=== PATIENT | male | born 1985 | race Caucasian/White ===

== ENCOUNTER 2016-11-08 11:40 | Emergency (ER) | payer OTHER ==
[~2016-11-08] VITALS: Ht 185.4 cm; Wt 129.6 kg
[~2016-11-08 11:40] MED LIST: CLIN-78 PO; IBUP800T28 PO
[2016-11-08 11:43] VITALS: BP 144/95; PULSE 77; RESP 16; O2SAT 98
[2016-11-08] MEDS ORDERED: METH20TA33 PO (11:45)
--- NOTE | 2016-11-08 11:49 | ED.REPORT ---
HPI-Back Pain Under 40 Date of Service Nov 08, 2016 ED Provider: Primo Boyer PA-C Jamey is a 31-year-old male with history of hypertension who presents with chief complaint of back pain. He describes pain that began in the middle of his back, between his shoulder blades which started while he was driving yesterday. Patient states that when he got his home, he noted a episode of pain in his chest associated with shortness of breath. Chest pain has been intermittent since then. He associates this pain with pain in his shoulders as well as pain and numbness in both his arms that was worse when he woke up this morning.. He reports that he has had numbness and tingling in his hands for 2 months approximately. Admits history of smoking. Admits family history of heart disease. Denies personal history of heart disease or diabetes. Denies lumbar or cervical pain. Denies fever, DM, HIV, organ transplant, immunosuppression, recent surgery, recent infection, history of back surgery, surgical implants and IV drug use. Denies some bowel/bladder dysfunction, saddle anesthesia. Nursing Notes Stated Complaint: BACK PAIN/ARMS AND HANDS NUMBNESS Chief Complaint: Back Pain or Injury Nursing Notes Reviewed: Yes Allergies: Coded Allergies: Sulfa (Sulfonamide Antibiotics) (Verified Allergy, Unknown, 11/08/16) Scheduled Methylphenidate (Methylphenidate) 20 Mg Tablet 20 MG PO DAILY Scheduled PRN Cyclobenzaprine (Cyclobenzaprine) 5 Mg Tablet 5 MG PO TID PRN PRN Spasm General Time Seen by MD: 11:47 Chief Complaint Back pain Sudden in Onset?: Yes Past Medical History Past Medical History Notes: PCP: [facility] Past Medical History Lower Extremity Cellulitis 02/23/2015 ADD Anxiety Past Surgical History None reported Family History Both grandfathers of [place], over 50. Father with heart disease, still living. Smoking History Current Every Day Smoker Social History Alcohol Use: 1-3 per week Drug Use: Denies drug use Ambulatory Status Independent Review of Systems Negative unless stated otherwise in history of present illness Physical Exam General: Well appearing, well developed, well nourished, no acute distress. Head: Atraumatic, normocephalic. Eyes: No scleral icterus or injection. No discharge. Vision grossly intact. ENT: Voice clear, hearing grossly intact. Respiratory: Regular rate and rhythm. Breath sounds present, clear to auscultation and equal bilaterally. No respiratory distress. No increased work of breathing, speaks in complete sentences. Cardiovascular: Regular rate and rhythm, without murmur, gallop or rub. No pedal edema. Gastrointestinal: Abdomen flat and non-tender without guarding or rebound. Bowel sounds normoactive. Skin: Warm and dry. Back: Normal to inspection, mild tenderness to palpation over trapezius muscles bilaterally. Mild midline spinal tenderness in thoracic region. Neurological: Normal gait. Deltoid abduction, wrist flexion and extension, finger flexion and abduction strength 5/5 on right. Deltoid abduction 5/5, wrist flexion and extension, finger flexion and abduction strength 4/5 on left. sensation to sharp touch intact over deltoid but reduced over first, third and fifth digits B/L. triceps reflexes absent bilaterally, brachioradialis reflexes present and equal B/L. Psychological: Alert and oriented. Speech appropriate, linear and logical. Behavior appropriate. Initial Vital Signs Vital Signs (First) Date Time Temp Pulse Resp B/P Pulse Ox O2 Delivery O2 Flow Rate FiO2 11/08/16 11:43 36.8 77 16 144/95 98 Room Air Initial VS: Reviewed, Vital signs normal Interpretation & Diagnostics Lab Results Interpretation Result Diagram: 11/08/16 1325 11/08/16 1325 Test 11/08/16 13:25 White Blood Count 5.9th/mm3 (3.8-10.1) Red Blood Count 5.39mil/mm3 (4.40-5.80) Hemoglobin 15.4g/dL (13.8-17.2) Hematocrit 47.6% (41.0-50.0) Mean Corpuscular Volume 88.3fL (81-100) Mean Corpuscular Hemoglobin 28.6pg (27.0-35.0) Mean Corpuscular Hemoglobin Concent 32.4% (32.0-37.0) Red Cell Distribution Width 13.3% (12.3-15.4) Platelet Count 271bil/L (150-400) Neutrophils (%) (Auto) 59.8% (40-74) Lymphocytes (%) (Auto) 30.2% (14-46) Monocytes (%) (Auto) 6.5% (4-12) Eosinophils (%) (Auto) 3.2% (0-5) Basophils (%) (Auto) 0.3% (0-3) Sodium Level 140mEq/L (134-144) Potassium Level 4.3mEq/L (3.5-5.2) Chloride Level 103mEq/L (97-108) Carbon Dioxide Level 22mmol/L (18-29) Blood Urea Nitrogen 19mg/dL (6-20) Creatinine 0.87mg/dL (0.76-1.27) Estimat Glomerular Filtration Rate 108mL/min (>59) Glucose Level 116mg/dL (60-99) Calcium Level 9.7mg/dL (8.5-10.1) Total Bilirubin 0.5mg/dL (0.0-1.2) Aspartate Amino Transf (AST/SGOT) 26U/L (0-50) Alanine Aminotransferase (ALT/SGPT) 51U/L (0-44) Alkaline Phosphatase 67U/L (25-150) Troponin T < 0.010ug/L (0.0-0.011) Total Protein 8.0g/dL (6.4-8.4) Albumin 4.3g/dL (3.4-5.0) Hold Fabian Top Tube Received (Received) ECG Interpretation Interpreted by: ED physician Normal ECG Interpretation: Normal rate, Normal sinus rhythm, No acute ischemic changes, Normal QRS, Normal axis, Normal intervals, No change from prior ECGs, Adequate tracing X-Ray Chest Interpretation Chest Xray Interpretation: PROCEDURE: X-RAY CHEST ONE VIEW, PORTABLE ([id number]) INDICATIONS: chest pain IMPRESSION: No acute cardiopulmonary disease. Re-Eval/Medical Decision Med Decision/Clinical Course Otherwise healthy 29-year-old male presents with thoracic back pain began while he was driving yesterday. He reports it is associated with some chest pain. He states it radiates to his shoulders and his arms. Complains of numbness in his hands bilaterally that has been present for some time. Denies weakness. No red flag history for epidural abscess, hematoma, cauda equina syndrome, trauma. Physical examination reveals some weakness on the left side and reduced sensation to sharp touch in his hands bilaterally. Patient reports mild tenderness over his trapezius muscles. Patient moves easily to disrobe, walk. EKG, CBC, CMP and troponin are all reassuring. I believe this is muscular skeletal pain. I am not concerned about a cardiac event, aortic dissection, or the previously mentioned conditions. I cannot easily explain the weakness on his left side, as this does not seem consistent with the location of his pain. I have little concern for stroke. Advised [id number] analgesia provided small prescription for cyclobenzaprine. Advise primary care follow-up, prior emergency return precautions. Patient understands and agrees with plan. I discussed his case with Dr. Madrid. Re-Evaluation/Progress : Time of Eval: 12:50 Patient Status: Condition improved Re-Evaluation/Progress Note: Patient reports improvement with in pain with ketorolac and acetaminophen. shooting pains in arms have resolved, reports "a little numbness when I move my hands" Discharge & Departure Impression: Primary Impression: Thoracic back pain Chronicity: acute Back pain laterality: bilateral Qualified Code: M54.6 - Pain in thoracic spine Disposition: Home All VS Reviewed: Yes Condition: Stable Additional Instructions: Evaluation in the emergency department for upper back pain. History physical are reassuring this is unlikely to be an immediately dangerous conditions such as compression of your spinal cord, infection or bleeding. EKG, chest x-ray and blood tests are reassuring this is not likely to be caused by a cardiac event or problem with your lungs. I believe this is musculoskeletal back pain and that you are stable and safe for discharge. The pain is best treated with 400 mg of ibuprofen (Advil, Motrin) every 6 hours , or 1000 mg of acetaminophen (Tylenol) every 6 hours. These drugs can be taken at the same time for more severe pain. I will prescribe a small amount of muscle relaxant, mostly to help with sleep. Do not drive, operate equipment or drink alcohol within 4 hours of taking this medication. Please follow-up with your primary care provider in the next few days to discuss the sensation of numbness and weakness in your arms. Return to emergency department for any new or worsening symptoms including increasing pain, increasing weakness, fever Referrals: Miguel Grimaldo MD EDSupervising Provider for APC: Federico Madrid MD copies to: Miguel Grimaldo MD, Seth PA-C Nov 08, 2016 11:49
[2016-11-08] MEDS ORDERED: Ketorolac 30 mg/mL 2 mL Inj IM ONE (12:10)
--- NOTE | 2016-11-08 13:30 | DRSVH ---
PROCEDURE: X-RAY CHEST ONE VIEW, PORTABLE ([id number]) INDICATIONS: chest pain TECHNIQUE: One view of the chest was acquired. COMPARISON: [facility], CR, XR CHEST 1VW (PORTABLE), 05/16/2016, 21:53. FINDINGS: Surgical changes and devices: None. Lungs and pleura: No pleural effusions or pneumothorax. Lungs are clear. Mediastinum: Mediastinal contours appear normal. Heart size is normal. Bones and chest wall: No suspicious bony lesions. Overlying soft tissues appear unremarkable. IMPRESSION: No acute cardiopulmonary disease. Dictated by: Samir Smith [facility] Interpreted: Imtiaz Dickens MD on 11/08/2016 at 13:29 Transcribed by: EBEN on 11/08/2016 at 13:30 Approved by: Imtiaz Dickens M.D. on 11/08/2016 at 19:20
[2016-11-08 13:36] LABS: BASOPHILS % (AUTO) 0.3 % (0-3); EOSINOPHILS % (AUTO) 3.2 % (0-5); MONOCYTES % (AUTO) 6.5 % (4-12); Mean Corpuscular Hemoglobin 28.6 pg (27.0-35.0); Mean Corpuscular Volume 88.3 fL (81-100); NEUTROPHILS % (AUTO) 59.8 % (40-74); Platelet Count 271 bil/L (150-400)
[2016-11-08 13:56] LABS: TROPONIN T < 0.010 ug/L (0.0-0.011)
[2016-11-08] MEDS ORDERED: CYCL5TAB PO (15:33)
[2016-11-08 15:49] VITALS: BP 134/92; PULSE 77; RESP 15; O2SAT 96
== END 2016-11-08 15:51 | disposition home or self-care (01) ==
LOC: SED 11:40
DX: M54.6 Pain in thoracic spine (principal); R07.9 Chest pain, unspecified; R06.02 Shortness of breath; M25.519 Pain in unspecified shoulder; R20.0 Anesthesia of skin; M79.601 Pain in right arm; M79.602 Pain in left arm; I10 Essential (primary) hypertension; F17.200 Nicotine dependence, unspecified, uncomplicated; Z88.2 Allergy status to sulfonamides
CPT/HCPCS: 36415; 71010; 80053; 84484; 85025; 93005; 96372; 99285; J1885